=== PATIENT | female | born 1985 | race African-American/Black ===

== ENCOUNTER 2017-10-17 18:55 | Emergency (ER) | payer OTHER ==
[~2017-10-17] VITALS: Ht 154.9 cm; Wt 72.1 kg
[~2017-10-17 18:55] MED LIST: AMLODIPINE; AMLODIPINE BESYL5 MG ORAL; ANTIPYRINE-BENZ14 ML BOTH EARS; ATENOLOL50 MG ORAL; BENZTROPINE MESY1 MG PO; BUDEPRION SR150 MG PO; CATAPRES0.1 MG ORAL; CLINDAMYCIN HC300 MG ORAL; CLOTRIMAZOLE15 GM TOPIC; DEPAKOTE500 MG PO; DOC-Q-LACE100 M1 ORAL; FERROUS SULFAT325 MG ORAL; GLIPIZIDE5 MG ORAL; HALDOL; HALOPERIDOL1 MG ORAL; HUMULIN R100 UNIT/1 SUBQ; LACTULOSE20 GM/301 ORAL; LATUDA20 MG PO; LORAZEPAM1 MG ORAL; LOSARTAN-HCTZ1 EAC2 ORAL; METFORMIN HCL1000 M1 ORAL; MIRALAX17 G2 ORAL; PROVERA2.5 MG ORAL; RISPERDAL2 MG ORAL; SEROQUEL200 MG ORAL; TEMAZEPAM15 MG ORAL; VENTOLIN HFA18 GM INH; VIBRAMYCIN100 MG ORAL
[2017-10-17] MEDS ORDERED: HYDROCHLOROTH12.5 MG ORAL (19:05)
[2017-10-17] MEDS ORDERED: DIOVAN80 MG ORAL (19:05)
[2017-10-17] MEDS ORDERED: CHLORPROMAZINE25 MG PO (19:05)
[2017-10-17] MEDS ORDERED: ATORVASTATIN CA20 MG ORAL (19:05)
[2017-10-17 19:20] VITALS: BP 125/68
[2017-10-17 19:43] LABS: APPEARANCE,URINE CLEAR; BILIRUBIN, URINE NEGATIVE (NEGATIVE); COLOR,URINE PALE YELLOW; GLUCOSE, URINE (UA) NEGATIVE (NEGATIVE); KETONES,URINE NEGATIVE (NEGATIVE); LEUKOCYTE ESTERASE ,URINE NEGATIVE (NEGATIVE); NITRITE,URINE NEGATIVE (NEGATIVE); PH,URINE 6 (4.5-8.0); PROTEIN,URINE NEGATIVE (NEGATIVE); UROBILINOGEN,URINE NORMAL MG/DL (0.0-1.0)
[2017-10-17] MEDS ORDERED: CEPHALEXIN500 MG ORAL (20:11)
[2017-10-17] MEDS ORDERED: PHENAZOPYRIDIN200 MG ORAL (20:11)
[2017-10-17] MEDS ORDERED: LACTULOSE10 GM/155 PO (20:11)
[2017-10-17] MEDS ORDERED: NITROFURANTOIN100 M2 ORAL (20:12)
[2017-10-17] MEDS ORDERED: Phenazopyridine 200mg tab ORAL ONE (20:15)
[2017-10-17] MEDS ORDERED: Lactulose 20gm/30ml UDC ORAL ONE (20:15)
[2017-10-17] MEDS ORDERED: IBUPROFEN600 MG ORAL (20:48)
[2017-10-17 20:50] VITALS: BP 122/70
--- NOTE | 2017-10-17 22:09 | Emergency Room Report ---
History of Present Illness General Chief Complaint: Abdominal Pain Present Illness HPI Patient is a 32-year-old female who presented after increased abdominal discomfort. Patient gradual onset of symptoms. Patient was noted to have increased constipation. Patient been taking psychiatric medications. The patient denies being . She states she is not sexually active. The patient was having some additional dysuria. Patient was noted to have some abdominal distention. Patient was having last bowel movement approximate 3 days ago. Allergies: Coded Allergies: PENICILLINS (Verified Allergy, 06/07/13) SULFAMETHOXAZOLE (Verified Allergy, 06/07/13) TRIMETHOPRIM (Verified Allergy, 06/07/13) Patient History Reviewed Nursing Documentation: PMH: Agreed; PSxH: Agreed Nursing Documentation-PMH Hx Hypertension: Yes Hx Diabetes: Yes Hx Cancer: No Hx Gastrointestinal Problems: No Hx Neurological Problems: No Hx Seizures: Yes Review of Systems All Other Systems: negative except mentioned in HPI Physical Exam Vital Signs Date Time Temp Pulse Resp B/P (MAP) Pulse Ox O2 Delivery O2 Flow Rate FiO2 10/17/17 18:58 98.2 116 20 119/65 96 Room Air 98.2 General Appearance: well appearing, no apparent distress, alert, GCS 15 Head: normocephalic, atraumatic ENT: hearing grossly normal, normal voice Neck: full range of motion, supple Respiratory: no respiratory distress, speaking full sentences Gastrointestinal: normal inspection, normal bowel sounds, non tender, soft Musculoskeletal: no calf tenderness Neurologic: alert, oriented x3, responsive, garment finisher III-XII nml as tested, normal gait Psychiatric: mood/affect normal Skin: no rash Medical Decision Making Diagnostic Impression: Primary Impression: Constipation ER Course Patient presented for abdominal pain. Differential diagnoses included ischemic bowel, appendicitis, perforated viscus, abdominal aortic aneurysm, inferior myocardial infarction, viral gastroenteritis The KUB one view interpreted by me showed nonobstructive bowel gas pattern. The patient is advised to follow up with primary care doctor in 1-2 days. Patient is advised to return if any worsening condition or if any changes in status that are concerning. This report is dictated with [employer] tufting machine operator software which may occasionally lead to discrepancies related to use of this software. Labs Test 10/17/17 19:05 Urine Color Pale yellow Urine Appearance Clear Urine pH 6 (4.5-8.0) Urine Specific [place] 1.015 (1.005-1.035) Urine Protein Negative (NEGATIVE) Urine Glucose (UA) Negative (NEGATIVE) Urine Ketones Negative (NEGATIVE) Urine Occult Blood Negative (NEGATIVE) Urine Nitrite Negative (NEGATIVE) Urine Bilirubin Negative (NEGATIVE) Urine Urobilinogen Normal MG/DL (0.0-1.0) Urine Leukocyte Esterase Negative (NEGATIVE) Urine HCG, Qualitative Negative (NEGATIVE) Last Vital Signs Date Time Temp Pulse Resp B/P (MAP) Pulse Ox O2 Delivery O2 Flow Rate FiO2 10/17/17 20:50 98.2 98 17 122/70 99 Room Air 208.8 Status: improved Disposition: HOME, SELF-CARE Condition: Stable Scripts Ibuprofen* (MOTRIN*) 600 Mg Tablet 600 MG ORAL Q8H PRN for For Pain, #30 TAB 0 Refills Prov: Len Faulkner MD 10/17/17 Lactulose (LACTULOSE) 10 Gm/15 Ml Solution 10 GM PO THREE TIMES A DAY for constipation, #120 ML Prov: Len Faulkner MD 10/17/17 Patient Instructions: Constipation, Adult Len Faulkner MD October 17, 2017 22:08
--- NOTE | 2017-10-18 10:29 | Diagnostic Imaging Report ---
Indication: Abdominal pain Comparison: 07/04/2015 Single view of the abdomen obtained Findings: Bowel gas pattern is nonspecific. There is a moderate degree of stool retention within the colon and rectum. No mass, ectopic calcifications, or abnormal gas collections are identified. The bones are unremarkable. Impression: No acute findings. Moderate stool
== END 2017-10-17 20:50 | disposition home or self-care (01) ==
LOC: EMR 19:15
DX: K59.00 Constipation, unspecified (principal); R10.9 Unspecified abdominal pain; I10 Essential (primary) hypertension; E11.9 Type 2 diabetes mellitus without complications; Z88.2 Allergy status to sulfonamides; Z88.0 Allergy status to penicillin
CPT/HCPCS: 74018; 81003; 81025; 82962; 99284